=== PATIENT | female | born 1955 | race Hispanic/Latino ===

== ENCOUNTER 2017-06-26 11:38 | Outpatient (CLI) | payer BC ==
--- NOTE | 2017-06-26 16:28 | Mammography Report ---
BILATERAL DIGITAL SCREENING MAMMOGRAM with CAD: 06/26/17 11:38:00 CLINICAL: Routine screening. COMPARISON:06/27/16 FINDINGS: The breasts are almost entirely fatty. No mass, architectural distortion or suspicious calcifications. IMPRESSION: No mammographic evidence of malignancy. BI-RADS CATEGORY: 1 - - Negative RECOMMENDATION: Routine mammographic screening in one year. COMMENT: Patient follow-up letters are generated by our [email or web address] application.
== END 2017-06-26 11:39 | disposition home or self-care (01) ==
LOC: SPVWC 11:38
PROVIDERS: ATTEND Obstetrics & Gynecology
DX: Z12.31 Encounter for screening mammogram for malignant neoplasm of breast (principal); E78.00 Pure hypercholesterolemia, unspecified; J45.909 Unspecified asthma, uncomplicated; K21.9 Gastro-esophageal reflux disease without esophagitis
CPT/HCPCS: 77067; G0202

== ENCOUNTER 2020-11-06 13:03 | Outpatient (CLI) | payer BC ==
--- NOTE | 2020-11-06 14:23 | Mammography Report ---
DIGITAL SCREENING MAMMOGRAM WITH CAD, 11/06/2020 CLINICAL INFORMATION / INDICATION: Routine screening mammography. SCREENING MAMMO TECHNIQUE: Digital bilateral 2D mammography was obtained in the craniocaudal and mediolateral obliqu e projections. This examination was interpreted with the benefit of Computer-Aided Detection analysis . COMPARISON: 06/27/2016 through 06/24/2019. FINDINGS: Breast Density: The breasts are almost entirely fatty. No dominant mass, suspicious calcifications, or architectural distortion in either breast. There are benign scattered calcifications bilaterally. There are minimal benign breast arterial calci fications bilaterally. No new abnormality is seen. IMPRESSION: No mammographic evidence of malignancy. Follow up recommendation: Routine yearly BI-RADS Category 2: Benign. A "normal" or negative report should not discourage follow up or biopsy of a clinically significant f inding. A written summary of these findings will be mailed to the patient. The patient will be entered into a mammography reporting system which will generate a reminder letter for the patient's next appointmen t at the appropriate interval. The [employer] recommends yearly mammograms starting at age 40 and continuing as l gonzález as a woman is in good health. Breast MRI is recommended for women with an approximate 20-25% or greater lifetime risk of breast cancer, including women with a strong family history of breast or ova manuela cancer or who have been treated for Hodgkin's disease. Signer Name: Santos Bansal MD Signed: 11/06/2020 2:18 PM Workstation Name: [employer]
== END 2020-11-06 13:04 | disposition home or self-care (01) ==
LOC: SPVWC 13:03
PROVIDERS: ATTEND Obstetrics & Gynecology
DX: Z12.31 Encounter for screening mammogram for malignant neoplasm of breast (principal); N64.89 Other specified disorders of breast
CPT/HCPCS: 77067

== ENCOUNTER 2022-01-08 15:15 | Outpatient (CLI) | payer BC, MEDICARE ==
--- NOTE | 2022-01-10 10:09 | Mammography Report ---
DIGITAL SCREENING MAMMOGRAM WITH CAD, 01/08/2022 CLINICAL INFORMATION / INDICATION: Routine screening mammography. TECHNIQUE: Digital bilateral 2D mammography was obtained in the craniocaudal and mediolateral obliqu e projections. This examination was interpreted with the benefit of Computer-Aided Detection analysis . COMPARISON: 11/06/2020, 06/24/2019 FINDINGS: Breast Density: The breasts are almost entirely fatty. No dominant mass, suspicious calcifications, or architectural distortion in either breast. Bilateral benign calcifications are unchanged. IMPRESSION: No mammographic evidence of malignancy. Follow up recommendation: Routine yearly screening mammogram. BI-RADS Category 2: BENIGN. A "normal" or negative report should not discourage follow up or biopsy of a clinically significant f inding. A written summary of these findings will be mailed to the patient. The patient will be entered into a mammography reporting system which will generate a reminder letter for the patient's next appointmen t at the appropriate interval. The [employer] recommends yearly mammograms starting at age 40 and continuing as l gonzález as a woman is in good health. Breast MRI is recommended for women with an approximate 20-25% or greater lifetime risk of breast cancer, including women with a strong family history of breast or ova manuel[place] cancer or who have been treated for Hodgkin's disease. Signer Name: Nahum Dunn MD Signed: 01/10/2022 10:05 AM Workstation Name: [id number]
== END 2022-01-08 15:16 | disposition home or self-care (01) ==
LOC: SPVWC 15:15
PROVIDERS: ATTEND Obstetrics & Gynecology
DX: Z12.31 Encounter for screening mammogram for malignant neoplasm of breast (principal)
CPT/HCPCS: 77067